=== PATIENT | female | born 1965 | race Caucasian/White ===

== ENCOUNTER 2017-07-24 16:43 | Emergency (ER) | END 2017-07-24 16:52 | disposition home or self-care (01) ==

== ENCOUNTER 2018-01-17 02:00 | Emergency (ER) | END 2018-01-17 06:08 | disposition home or self-care (01) ==

== ENCOUNTER 2018-04-25 19:29 | Emergency (ER) | payer OTHER ==
[~2018-04-25] VITALS: Ht 170.2 cm; Wt 72.7 kg
[~2018-04-25 19:29] MED LIST: IBUP-1982 PO; PREM3 PO
[2018-04-25 19:49] VITALS: Ht 170.2 cm; Wt 72.7 kg
[2018-04-25] MEDS ORDERED: HYDROCODONE/APAP (5/325) TAB ONE (22:36)
[2018-04-25] MEDS ORDERED: HYDROCODONE/APAP (10/325) TAB PO ONE (23:00)
[2018-04-26] MEDS ORDERED: CYCLOBENZAPRINE 10 MG TAB PO ONE
[2018-04-26] MEDS ORDERED: ONDANSETRON (ODT) 4 MG TAB ODT STA (00:12)
[2018-04-26] MEDS ORDERED: KETOROLAC 60 MG INJ IM STA (00:12)
[2018-04-26] MEDS ORDERED: IBUP-1542 PO (00:14)
[2018-04-26] MEDS ORDERED: CYCL10TA7 PO (00:14)
[2018-04-26 00:25] VITALS: BP 120/65; PULSE 80; RESP 20
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
== END 2018-04-26 00:27 | disposition home or self-care (01) ==
LOC: FTE 19:29
DX: M54.2 Cervicalgia (principal); R51 Headache; R07.9 Chest pain, unspecified
CPT/HCPCS: 70450; 71045; 72125; 72128; J1885; Z7610; 96372